=== PATIENT | female | born 1960 | race Two or more races ===

== ENCOUNTER 2022-03-01 20:11 | Emergency (ER) | payer OTHER ==
[~2022-03-01] VITALS: Ht 162.6 cm; Wt 93.0 kg
[2022-03-01] MEDS ORDERED: DexAMETHasone SOD PHOS 10MG/1ML VIAL INJ IM ONE (23:00)
[2022-03-01] MEDS ORDERED: diphenhdrAMINE HCL 50 MG/1 ML VL IM ONE (23:00)
[2022-03-01] MEDS ORDERED: FAMOTIDINE 20 MG TAB PO ONE (23:00)
[2022-03-02] MEDS ORDERED: PRED20TA2 PO (00:48)
[2022-03-02 01:25] VITALS: BP 142/80
== END 2022-03-02 01:25 | disposition home or self-care (01) ==
LOC: ER 20:15
DX: T78.3XXA Angioneurotic edema, initial encounter (principal); R22.0 Localized swelling, mass and lump, head; E78.5 Hyperlipidemia, unspecified; I10 Essential (primary) hypertension
CPT/HCPCS: 96372; 99284; J1100; J1200